=== PATIENT | female | born 1960 | race Caucasian/White ===

== ENCOUNTER 2017-07-27 07:59 | Day surgery (SDC) | payer OTHER ==
[2017-07-21 18:08] VITALS: BMI 28.0
[2017-07-27] MEDS ORDERED: PROPOFOL 20 ML ONE ×2 (08:01)
[2017-07-27 09:00] VITALS: TEMP 97.7
[2017-07-27 09:21] VITALS: BP 128/65; PULSE 57
== END 2017-07-27 09:23 | disposition home or self-care (01) ==
LOC: FASU-ENDO 07:59
PROVIDERS: ATTEND Internal Medicine Gastroenterology
PROC: 0DJD8ZZ Inspection of Lower Intestinal Tract, Via Natural or Artificial Opening Endoscopic (ICD-10-PCS; principal; 2017-07-27 08:27)
DX: Z12.11 Encounter for screening for malignant neoplasm of colon (principal); K64.8 Other hemorrhoids